=== PATIENT | female | born 1980 | race Asian ===

== ENCOUNTER 2018-08-03 17:40 | Emergency (ER) | payer MEDICAID ==
[2018-08-03] MEDS ORDERED: MORPHINE SULFATE 4 MG INJ IV ONE (18:08)
[2018-08-03] MEDS ORDERED: Sodium Chloride 0.9% 1000 ML 1,000 ML IV STA (18:08)
[2018-08-03] MEDS ORDERED: BENADRYL 50 MG/ML IV ONE (18:08)
[2018-08-03] MEDS ORDERED: BENADRYL 50 MG/ML ONE (18:13)
[2018-08-03] MEDS ORDERED: MORPHINE SULFATE 4 MG INJ ONE (18:13)
[2018-08-03] MEDS ORDERED: Sodium Chloride 0.9% 1000 ML 1,000 ML ONE (18:13)
--- NOTE | 2018-08-03 18:13 | ERPHSYRPT ---
- History of Present Illness Historian: patient Patient Subjective Stated Complaint: Abdominal pain to right lower side Triage Nursing Assessment: Patient brought back to ER via w/c. Patient states she has been having right lower abdomen pain since 0800 this am. Patient tearful stating pain is 9/10. Abdomen soft and round. Patient only hurts to right lower abdomen. Patient states she has been having diarrhea and vomitting since yesterday. Timing/Duration: today (7 AM) Activities at Onset: none Quality: aching, cramping Abdominal Pain Onset Location: RLQ Pain Radiation: no radiation Severity of Pain-Max: moderate Severity of Pain-Current: moderate Modifying Factors: Improves With: vomiting. Worsens With: analgesics, antacids , breathing, coughing, defecating, eating, exercise, lying down, movement, palpation, rest, urinating, position, walking Associated Symptoms: nausea, neck pain, No back, No chest pain, No diaphoresis, No diarrhea, No fever/chills, No fatigue, No headache, No heartburn, No loss of appetite, No rash, No shortness of breath, No syncope, No vomiting, No weakness Previous symptoms: no prior history Hx Tetanus, Diphtheria Vaccination/Date Given: Yes Hx Influenza Vaccination/Date Given: No Hx Pneumococcal Vaccination/Date Given: No Immunizations Up to Date: Yes <CLAUDIA URIBE - Last Filed: 08/03/18 19:10> <PARKER COTTON - Last Filed: 08/03/18 23:20> - History of Present Illness Time Seen by Provider: 08/03/18 18:09 Physician History: 28-year-old white female with history of asthma arrhythmia high blood pressure Crohn's irritable bowel stomach cancer osteoarthritis rheumatoid arthritis PTSD. Patient arrives with complaint of right lower quadrant pain vomiting nausea symptoms since 7 AM this morning. Past medical history includes asthma, arrhythmia, high blood pressure, Crohn's, irritable bowel, stomach cancer, osteoarthritis, rheumatoid arthritis, PTSD. Past surgical history includes portion of stomach removed secondary to stomach cancer 2014, is partial hysterectomy, removal of the left ovary. (CLAUDIA URIBE) Allergies/Adverse Reactions: clarithromycin [From Biaxin] Allergy (Verified 08/03/18 18:00) dicyclomine [From Bentyl] Allergy (Verified 08/03/18 18:00) haloperidol [From Haldol] Allergy (Verified 08/03/18 18:00) ketorolac [From Toradol] Allergy (Verified 08/03/18 18:00) Penicillins Allergy (Verified 08/03/18 18:00) prochlorperazine [From Compazine] Allergy (Verified 08/03/18 18:00) Home Medications: Lisinopril/Hydrochlorothiazide [Lisinopril-Hctz 20-25 mg Tab] 1 each PO [History] - Review of Systems Constitutional: No Fever, No Chills Eyes: No Symptoms Ears, Nose, & Throat: No Symptoms Respiratory: No Cough, No Dyspnea Cardiac: No Symptoms Abdominal/Gastrointestinal: Abdominal Pain, Nausea, Vomiting, Diarrhea (she states she had loose stools), No Constipation, No Hematemesis, No Hematochezia ( she did), No Melena, No Dysphagia, No Appetite Changes Genitourinary Symptoms: No Dysuria Musculoskeletal: No Back Pain, No Neck Pain Skin: No Rash Neurological: No Dizziness, No Focal Weakness, No Sensory Changes Psychological: No Symptoms Endocrine: No Symptoms All Other Systems: Reviewed and Negative <CLAUDIA URIBE - Last Filed: 08/03/18 19:10> - Past Medical History Pertinent Past Medical History: Yes Neurological History: Epilepsy Cardiac History: Arrhythmia, Hypertension Respiratory History: Asthma Endocrine Medical History: No Pertinent History Musculoskeletal History: Osteoarthritis, Rheumatoid Arthritis GI Medical History: Crohns Disease, Irritable Bowel, Stomach Cancer History: No Pertinent History Psycho-Social History: Anxiety Female Reproductive Disorders: No Pertinent History Other Medical History: PTSD - Past Surgical History Past Surgical History: Yes Neuro Surgical History: No Pertinent History Cardiac: No Pertinent History Respiratory: No Pertinent History Gastrointestinal: Other Genitourinary: No Pertinent History Musculoskeletal: No Pertinent History Female Surgical History: Hysterectomy Other Surgical History: part of stomach removed due to stomach cancer 2014. partial hysterectomy removal of left ovary 2001 - Social History Smoking Status: Never smoker Exposure to second hand smoke: No Drug Use: none Patient Lives Alone: No - Female History Hx Last Menstrual Period: Partial hysterectomy 2001 Hx Now: No <CLAUDIA URIBE - Last Filed: 08/03/18 19:10> - Physical Exam General Appearance: moderate distress, alert, obese Eye Exam: PERRL/EOMI, eyes nml inspection Ears, Nose, Throat Exam: normal ENT inspection, pharynx normal, moist mucous membranes Neck Exam: normal inspection, non-tender, supple, full range of motion Respiratory Exam: normal breath sounds, lungs clear, No respiratory distress Cardiovascular Exam: regular rate/rhythm, normal heart sounds, normal peripheral pulses Gastrointestinal/Abdomen Exam: soft, tenderness (rlq tenderness), No mass Back Exam: normal inspection, normal range of motion, No CVA tenderness, No vertebral tenderness Extremity Exam: normal inspection, normal range of motion, pelvis stable Neurologic Exam: oriented x 3, cooperative, management accountant II-XII nml as tested, normal mood/affect, nml cerebellar function, sensation nml, No motor deficits Skin Exam: normal color, warm, dry SpO2 Interpretation: normal (100%) SpO2: 100 Oxygen Delivery: Room Air <CLAUDIA URIBE - Last Filed: 08/03/18 19:10> - Nursing Vital Signs Nursing Vital Signs: Initial Vital Signs Temperature 98.1 F 08/03/18 17:47 Pulse Rate 61 08/03/18 17:47 Respiratory Rate 18 08/03/18 17:47 Blood Pressure 149/123 08/03/18 17:47 O2 Sat by Pulse Oximetry 100 08/03/18 17:47 Pain Scale Pain Intensity 8 - Course Nursing assessment & vital signs reviewed: Yes <PARKER COTTON - Last Filed: 08/03/18 23:20> Ordered Tests: Active Orders 24 hr Category Date Time Status IV Insertion STAT Care 08/03/18 18:08 Active ABDOMEN AND PELVIS W CONTRAST [CT] Stat Exams 08/03/18 20:56 Taken AMYLASE Stat Lab 08/03/18 20:26 Completed CBC W DIFF Stat Lab 08/03/18 20:26 Completed CMP Stat Lab 08/03/18 20:26 Completed CULTURE,URINE Stat Lab 08/03/18 18:59 Received UA W/ MICROSCOPIC Stat Lab 08/03/18 18:59 Completed Medication Summary Generic Name Dose Route Start Last Admin Trade Name Freq PRN Reason Stop Dose Admin Oxycodone/Acetaminophen 2 tab 08/03/18 23:15 Percocet Tablet 5/325mg PO 08/03/18 23:16 STAT STA Discontinued Medications Generic Name Dose Route Start Last Admin Trade Name Freq PRN Reason Stop Dose Admin Diphenhydramine HCl 25 mg 08/03/18 18:08 08/03/18 20:23 Benadryl 50 Mg/Ml IV 08/03/18 18:09 25 mg STAT ONE Administration Diphenhydramine HCl Confirm 08/03/18 18:13 Benadryl 50 Mg/Ml Administered 08/03/18 18:14 Dose 50 mg .ROUTE .STK-MED ONE Hydromorphone HCl 1 mg 08/03/18 20:56 08/03/18 22:16 Hydromorphone 1 Mg/Ml Ampule IV 08/03/18 20:57 1 mg STAT ONE Administration Hydromorphone HCl Confirm 08/03/18 20:58 Hydromorphone 1 Mg/Ml Ampule Administered 08/03/18 20:59 Dose 1 mg .ROUTE .STK-MED ONE Sodium Chloride 1,000 mls @ 999 mls/hr 08/03/18 18:08 08/03/18 21:38 Sodium Chloride 0.9% 1000 Ml IV 08/03/18 19:08 Infused .Q1H1M STA Infusion Sodium Chloride Confirm 08/03/18 18:13 Sodium Chloride 0.9% 1000 Ml Administered 08/03/18 18:14 Dose 1,000 mls @ ud .ROUTE .STK-MED ONE Morphine Sulfate 4 mg 08/03/18 18:08 08/03/18 20:23 Morphine Sulfate 4 Mg Inj IV 08/03/18 18:09 4 mg STAT ONE Administration Morphine Sulfate Confirm 08/03/18 18:13 Morphine Sulfate 4 Mg Inj Administered 08/03/18 18:14 Dose 4 mg .ROUTE .STK-MED ONE Ondansetron HCl 4 mg 08/03/18 21:02 08/03/18 21:10 Zofran 4 Mg/2 Ml Vial IV 08/03/18 21:03 4 mg STAT ONE Administration Ondansetron HCl Confirm 08/03/18 21:01 Zofran 4 Mg/2 Ml Vial Administered 08/03/18 21:02 Dose 4 mg .ROUTE .STK-MED ONE Lab/Rad Data: Laboratory Result Diagrams 08/03/18 20:26 08/03/18 20:26 Laboratory Results 08/03/18 08/03/18 08/03/18 Range/Units 20:26 20:26 18:59 WBC 8.9 (4.0-10.5) K/mm3 RBC 5.02 (4.1-5.4) M/mm3 Hgb 15.1 (12.0-16.0) gm/dl Hct 45.2 (35-47) % MCV 90.0 (78-100) fl MCH 30.1 (26-32) pg MCHC 33.4 (32-36) g/dl RDW 13.9 (11.5-14.0) % Plt Count 411 (150-450) K/mm3 MPV 10.0 H (6-9.5) fl Gran % 73.5 H (36.0-66.0) % Eos # (Auto) 0.17 (0-0.5) Absolute Lymphs (auto) 1.75 (1.0-4.6) Absolute Monos (auto) 0.44 (0.0-1.3) Lymphocytes % 19.6 L (24.0-44.0) % Monocytes % 4.9 (0.0-12.0) % Eosinophils % 1.9 (0.00-5.0) % Basophils % 0.1 (0.0-0.4) % Absolute Granulocytes 6.55 (1.4-6.9) Basophils # 0.01 (0-0.4) Sodium 141 (137-145) mmol/L Potassium 3.4 L (3.5-5.1) mmol/L Chloride 101 (98-107) mmol/L Carbon Dioxide 27 (22-30) mmol/L Anion Gap 17.0 H (5-15) MEQ/L BUN 23 H (7-17) mg/dL Creatinine 0.85 (0.52-1.04) mg/dL Estimated GFR > 60.0 ML/MIN Glucose 104 (74-106) mg/dL Calcium 9.9 (8.4-10.2) mg/dL Total Bilirubin 0.40 (0.2-1.3) mg/dL AST 21 (14-36) U/L ALT 24 (0-35) U/L Alkaline Phosphatase 194 H (38-126) U/L Serum Total Protein 8.7 H (6.3-8.2) g/dL Albumin 4.8 (3.5-5.0) g/dL Amylase 72 (30-110) U/L Ur Collection Type VOID Urine Color YELLOW (YELLOW) Urine Appearance HAZY (CLEAR) Urine pH 5.0 (5-6) Ur Specific [place] 1.015 (1.005-1.025) Urine Protein TRACE (Negative) Urine Ketones NEGATIVE (NEGATIVE) Urine Blood NEGATIVE (0-5) [place]/ul Urine Nitrite NEGATIVE (NEGATIVE) Urine Bilirubin NEGATIVE (NEGATIVE) Urine Urobilinogen NORMAL (0-1) mg/dL Ur Leukocyte Esterase TRACE (NEGATIVE) Urine Microscopic RBC 2-5 (0-2) /HPF Urine Microscopic WBC 2-5 (0-5) /HPF Ur Epithelial Cells MODERATE (FEW) /HPF Urine Bacteria MODERATE (NEGATIVE) /HPF Urine Mucus SLIGHT (NEGATIVE) /HPF Urine Culture Reflexed YES (NO) Urine Glucose NEGATIVE (NEGATIVE) mg/dL Specimen Received 08/03/18 1900 - Progress Progress: improved <CLAUDIA URIBE - Last Filed: 08/03/18 19:10> - Progress Progress: improved <PARKER COTTON - Last Filed: 08/03/18 23:20> - Progress Progress Note: 08/03/18 18:50 28-year-old white female arrives with complaint of right lower quadrant abdominal pain symptoms since 7:30 this morning patient states she has been having vomiting and diarrhea. She has had a history of a partial hysterectomy left ovary removed. Labs are ordered IV fluids ordered unfortunately nurses are unable to obtain IV access. Anesthesia has been contacted by the nurses for possible IV access. . 08/03/18 19:07 Patient will be turned over to Dr. Cotton secondary to shift change. Case has been discussed with Dr. Cotton. (CLAUDIA URIBE) 08/03/18 23:[address] scan abd/pelvis does not show any acute findings. The labs are unremarkable. Since the patient has a history of stomach cancer, the patient will need to F/U with her oncologist for a PET CT scan. The patient will also need to F/U with her OPTION TRADER for pelvic US and evaluation. Pt will be sent home on a short course of percocet. (PARKER COTTON) <CLAUDIA URIBE - Last Filed: 08/03/18 19:10> - Departure Time of Disposition: 23:17 Departure Disposition: Home Critical Care Time: No <PARKER COTTON - Last Filed: 08/03/18 23:20> - Departure Clinical Impression: Abdominal pain Qualifiers: Abdominal location: right lower quadrant Qualified Code(s): R10.31 - Right lower quadrant pain Constipation Qualifiers: Constipation type: unspecified constipation type Qualified Code(s): K59.00 - Constipation, unspecified Condition: Stable Referrals: KIAH OBREGON MD [Primary Care Provider] - Instructions: Acute Abdomen (Belly Pain), Adult (DC), Constipation, Adult (DC) Additional Instructions: Follow up with your oncologist next week for possible PET CT scan or MRI to assess your abdominal pain. Follow up with your desktop operator for evaluation of your abdominal pain. Prescriptions: Oxycodone HCl/Acetaminophen [Percocet 5-325 mg Tablet] 1 each PO QID PRN #12 tablet MDD 4 PRN Reason: Pain Polyethylene Glycol 3350 [Miralax] 17 gm PO DAILY #1 powd.pack
[2018-08-03 19:11] LABS: Appearance HAZY (CLEAR); Bilirubin NEGATIVE (NEGATIVE); Blood NEGATIVE Ery/ul (0-5); Glucose NEGATIVE (NEGATIVE); Ketones NEGATIVE (NEGATIVE); Leukocyte Esterase TRACE (NEGATIVE); Nitrite NEGATIVE (NEGATIVE); Protein,Urine Dip TRACE (Negative); Specific Gravity 1.015 (1.005-1.025); Urobilinogen NORMAL mg/dL (0-1)
[2018-08-03 19:12] LABS: Bacteria MODERATE /HPF (NEGATIVE); Epithelial Cells MODERATE /HPF (FEW); Mucus SLIGHT /HPF (NEGATIVE)
[2018-08-03 20:36] LABS: BASOPHIL % 0.1 % (0.0-0.4); Basophil (Absolute #) 0.01 (0-0.4); Eosinophil % 1.9 % (0.00-5.0); Eosinophil (Absolute #) 0.17 (0-0.5); Granulocyte Absolute (ANC) 6.55 (1.4-6.9); Granulocytes % 73.5 % (36.0-66.0); Hematocrit 45.2 % (35-47); Hemoglobin 15.1 gm/dl (12.0-16.0); Lymphocyte (Absolute #) 1.75 (1.0-4.6); Lymphocytes % 19.6 % (24.0-44.0); Mean Corpuscular Hemoglobin 30.1 pg (26-32); Mean Corpuscular Hgb Concent. 33.4 g/dl (32-36); Monocyte (Absolute #) 0.44 (0.0-1.3); Monocytes % 4.9 % (0.0-12.0); Platelet Count 411 K/mm3 (150-450); Red Blood Count 5.02 M/mm3 (4.1-5.4); Red Cell Distribution Width 13.9 % (11.5-14.0); White Blood Count 8.9 K/mm3 (4.0-10.5)
[2018-08-03 20:53] LABS: ALBUMIN 4.8 g/dL (3.5-5.0); ALKALINE PHOSPHATASE 194 U/L (38-126); AMYLASE 72 U/L (30-110); BLOOD UREA NITROGEN 23 mg/dL (7-17); CHLORIDE 101 mmol/L (98-107); Calcium 9.9 mg/dL (8.4-10.2); Carbon Dioxide 27 mmol/L (22-30); Creatinine 1 0.85 mg/dL (0.52-1.04); Glucose 104 mg/dL (74-106); Potassium 3.4 mmol/L (3.5-5.1); SGOT/AST 21 U/L (14-36); SGPT/ALT 24 U/L (0-35); SODIUM 141 mmol/L (137-145); Total Protein 8.7 g/dL (6.3-8.2)
[2018-08-03] MEDS ORDERED: Hydromorphone 1 mg/ml Ampule IV ONE (20:56)
[2018-08-03] MEDS ORDERED: Hydromorphone 1 mg/ml Ampule ONE (20:58)
[2018-08-03] MEDS ORDERED: Zofran 4 MG/2 ML VIAL ONE (21:01)
[2018-08-03] MEDS ORDERED: Zofran 4 MG/2 ML VIAL IV ONE (21:02)
[2018-08-03 22:14] VITALS: PULSE 98
[2018-08-03] MEDS ORDERED: PERCOCET TABLET 5/325MG PO STA (23:15)
[2018-08-03] MEDS ORDERED: PERCOCET TABLET 5/325MG ONE (23:16)
[2018-08-03 23:20] VITALS: BP 116/63; O2SAT 96
--- NOTE | 2018-08-04 06:57 | XRAY ---
Indication: Right lower quadrant pain with nausea, vomiting, and diarrhea. History ovary cysts, Crohn's disease, and stomach cancer. Multiple contiguous axial images obtained through the abdomen and pelvis using 80 cc Isovue 370 contrast only. Comparison: None Lung bases demonstrates mild bibasilar dependent atelectasis. No infiltrate or effusion. Heart is not enlarged. Small hiatal hernia. Noncontrasted stomach and bowel loops appear nonobstructed. Normal appendix. Mild diffuse scattered colonic fecal debris throughout and sigmoid diverticulosis. Previous cholecystectomy and hysterectomy. No free fluid/air. Remaining liver, pancreas, spleen, adrenal glands, kidneys, ureters, bladder, and aorta appear unremarkable. No pathologic retroperitoneal lymphadenopathy. Osseous structures intact. No ventral or inguinal hernias. Impression: 1. Small hiatal hernia, fecal stasis without obstruction, and sigmoid diverticulosis. 2. Remaining CT abdomen/pelvis with contrast exam is negative. Comment: Preliminary interpretation was made by [facility]. No critical discrepancy. CTDI 28.13
== END 2018-08-03 23:31 | disposition home or self-care (01) ==
LOC: ED 17:40 → EDBD 17:40 → ED 23:31
DX: R10.31 Right lower quadrant pain (principal); R11.2 Nausea with vomiting, unspecified; R19.7 Diarrhea, unspecified; K59.00 Constipation, unspecified; Z85.028 Personal history of other malignant neoplasm of stomach
CPT/HCPCS: 36000; 36415; 74177; 76942; 80053; 81000; 82150; 85025; 87086; 96360; 96374; 96375; 99284; J1170; J1200; J2270; J2405; A9270-GY

== ENCOUNTER 2018-08-07 21:07 | Emergency (ER) | payer MEDICAID ==
[2018-08-07 22:00] VITALS: BP 108/96; PULSE 66; O2SAT 97
[2018-08-07] MEDS ORDERED: Sodium Chloride 0.9% 1000 ML 1,000 ML IV STA (22:22)
--- NOTE | 2018-08-07 22:29 | ERPHSYRPT ---
- History of Present Illness Time Seen by Provider: 08/07/18 22:23 Historian: patient Exam Limitations: no limitations Patient Subjective Stated Complaint: pt states her vomiting and diarrhea have increased today. states she is having pain in her lower abd Triage Nursing Assessment: pt alert and oriented, answers questions approp. pt in per wheelchair. transfer to stretcher per self. respirations nonlabored with lungs cta. abd soft and nontender to light palpation. bowel sounds present x4. Physician History: 38-year-old morbidly obese white female with history of asthma, arrhythmia, high blood pressure, Crohn's, irritable bowel, stomach cancer, osteoarthritis, rheumatoid arthritis, PTSD. Patient was seen here on the August 03, 2018 with complaint of right lower quadrant abdominal pain and vomiting symptoms since 7:00 AM on that day. Patient had a rather extensive workup including CBC CMP amylase lipase UA and CT of the abdomen CT of the abdomen did not show any acute findings. Patient was a rather difficult stick she had an IV which was obtained by anesthesia. She was given IV fluids initially morphine and Benadryl she stated she did not get much relief she was given then given hydromorphone by Dr. Cotton as well as she was given Zofran. Patient apparently was going to sign out after receiving the hydromorphone however apparently agreed to stay until CT results were back. Patient was discharged by Dr. Cotton it was recommended that she follow-up with her family doctor oncologist or ENVIRONMENTAL AIDE physician for further evaluation she was given a prescription for Percocet 5/325 one 4 times a day #12 she was also given MiraLAX prescription secondary to some increased stool as noted on CT examination. Patient states that today at around 4:00 in the afternoon she noticed pain in her right lower quadrant of her abdomen and noted blood in her stool. She states she has been having nausea and vomiting for several days but she is really not concerned about that. Patient does state that she contacted her family physician Dr. Alegria after being seen last time he apparently could not work her in but had planned on her seeing a sole tacker in the future. Patient complains of pain in the right lower quadrant states she has blood in her stools at this time. Past medical history includes asthma, arrhythmia, high blood pressure, Crohn's, irritable bowel, stomach cancer, osteoarthritis, rheumatoid arthritis, PTSD Past surgical history includes portion of stomach removed secondary to stomach cancer in 2015, partial hysterectomy, removal of the left ovary . Social history patient denies tobacco alcohol or illicit drug use Timing/Duration: today (4:00 this afternoon) Activities at Onset: none Quality: cramping Abdominal Pain Onset Location: RLQ Pain Radiation: no radiation Severity of Pain-Max: moderate Severity of Pain-Current: moderate Modifying Factors: Improves With: vomiting, other (patient states she has b). Worsens With: analgesics, antacids, breathing, coughing, defecating, eating, exercise, lying down, movement, palpation, rest, urinating, position, walking Associated Symptoms: nausea, vomiting, No back, No chest pain, No diaphoresis, No diarrhea, No fever/chills, No fatigue, No headache, No loss of appetite, No neck pain, No rash, No shortness of breath, No syncope Previous symptoms: same symptoms as today Allergies/Adverse Reactions: clarithromycin [From Biaxin] Allergy (Verified 08/07/18 22:00) dicyclomine [From Bentyl] Allergy (Verified 08/07/18 22:00) haloperidol [From Haldol] Allergy (Verified 08/07/18 22:00) ketorolac [From Toradol] Allergy (Verified 08/07/18 22:00) Penicillins Allergy (Verified 08/07/18 22:00) prochlorperazine [From Compazine] Allergy (Verified 08/07/18 22:00) Home Medications: Lisinopril/Hydrochlorothiazide [Lisinopril-Hctz 20-25 mg Tab] 1 each PO [History] Hx Tetanus, Diphtheria Vaccination/Date Given: Yes Hx Influenza Vaccination/Date Given: No Hx Pneumococcal Vaccination/Date Given: No Immunizations Up to Date: Yes - Review of Systems Constitutional: No Fever, No Chills Eyes: No Symptoms Ears, Nose, & Throat: No Symptoms Respiratory: No Cough, No Dyspnea Cardiac: No Chest Pain, No Edema, No Syncope Abdominal/Gastrointestinal: Abdominal Pain, Nausea, Vomiting, Hematochezia, Other Genitourinary Symptoms: No Dysuria Musculoskeletal: No Back Pain, No Neck Pain Skin: No Rash Neurological: No Dizziness, No Focal Weakness, No Sensory Changes Psychological: No Symptoms Endocrine: No Symptoms All Other Systems: Reviewed and Negative - Past Medical History Pertinent Past Medical History: Yes Neurological History: Epilepsy Cardiac History: Arrhythmia, Hypertension Respiratory History: Asthma Endocrine Medical History: No Pertinent History Musculoskeletal History: Osteoarthritis, Rheumatoid Arthritis GI Medical History: Crohns Disease, Irritable Bowel, Stomach Cancer History: No Pertinent History Psycho-Social History: Anxiety Female Reproductive Disorders: No Pertinent History Other Medical History: PTSD - Past Surgical History Past Surgical History: Yes Neuro Surgical History: No Pertinent History Cardiac: No Pertinent History Respiratory: No Pertinent History Gastrointestinal: Cholecystectomy, Other Genitourinary: No Pertinent History Musculoskeletal: Orthopedic Surgery Female Surgical History: Hysterectomy Other Surgical History: part of stomach removed due to stomach cancer 2014. partial hysterectomy removal of left ovary 2001. mult knee surgery - Social History Smoking Status: Never smoker Exposure to second hand smoke: No Drug Use: none Patient Lives Alone: No - Female History Hx Last Menstrual Period: hyster Hx Now: No - Nursing Vital Signs Nursing Vital Signs: Initial Vital Signs Temperature 97.8 F 08/07/18 21:49 Pulse Rate 66 08/07/18 21:49 Respiratory Rate 20 08/07/18 21:49 Blood Pressure 108/96 08/07/18 21:49 O2 Sat by Pulse Oximetry 97 08/07/18 21:49 Pain Scale Pain Intensity 9 - Physical Exam SpO2: 97 Oxygen Delivery: Room Air - Course Nursing assessment & vital signs reviewed: Yes Ordered Tests: Active Orders 24 hr Category Date Time Status IV Insertion STAT Care 08/07/18 22:22 Active Medication Summary Discontinued Medications Generic Name Dose Route Start Last Admin Trade Name Freq PRN Reason Stop Dose Admin Sodium Chloride 1,000 mls @ 999 mls/hr 08/07/18 22:22 Sodium Chloride 0.9% 1000 Ml IV 08/07/18 23:22 .Q1H1M STA - Progress Progress: improved Progress Note: 08/07/18 22:30 offered to have a Daren did examine the patient she had some mild right lower quadrant tenderness positive bowel sounds, I did tell the patient I would go ahead and plan on getting a CBC CMP amylase lipase Will we did say were negative of fluids and consider Benadryl for her pain. Patient apparently has decided that she would prefer to go home and try her Benadryl at home. 08/07/18 23:02 I went ahead and offered to get the blood work give patient's fluids, get labs, and get a rectal exam to quantify and qualify her rectal bleeding. Patient has decided that she really does not want to have more labs she does not want a rectal exam. I have told the patient that I cannot rule out serious illnesses or dangerous illnesses without labs and or at least occult blood in stool. Patient has decided that she wants to leave Will have patient leave AGAINST MEDICAL ADVICE. 08/07/18 23:04 It was advised that patient follow up with her family doctor. - Departure Time of Disposition: 22:31 Departure Disposition: Home, AMA Clinical Impression: stated hematochezia Abdominal pain Qualifiers: Abdominal location: right lower quadrant Qualified Code(s): R10.31 - Right lower quadrant pain Condition: Fair Critical Care Time: No Referrals: KIAH OBREGON MD [Primary Care Provider] -
== END 2018-08-07 22:39 | disposition left against medical advice (07) ==
LOC: ED 21:07
DX: K92.1 Melena (principal); R10.31 Right lower quadrant pain; R11.2 Nausea with vomiting, unspecified; Z79.899 Other long term (current) drug therapy
CPT/HCPCS: 99283

== ENCOUNTER 2018-08-16 00:45 | Emergency (ER) | payer MEDICAID ==
[2018-08-16 01:03] VITALS: O2SAT 96
--- NOTE | 2018-08-16 01:32 | ERPHSYRPT ---
- History of Present Illness Time Seen by Provider: 08/16/18 01:25 Historian: patient Exam Limitations: no limitations Patient Subjective Stated Complaint: pt is alert and oriented. pt is ambulatory. pt has RLQ pain. pt states that it began hurting at 08/15/18 2330. pt states pain began aching and then became sharp. rebound tenderness noted. pt grasping site. pt has had n/v/d. hx of crohns. Triage Nursing Assessment: see above Physician History: The patient is a morbidly obese 38-year-old female brought in by her complaining of a sudden onset of right lower quadrant abdominal pain today sometime between 2 and 5 PM. At times her history is disjointed and is not clearly matching up with prior history is recorded. She was seen in this ER on 08/03/18 and again on 08/07/18 for the same complaints. This has happened in the past, she also complains of vomiting and diarrhea. She did not take any thing to help the pain tonight. She was given [place] on 08/03/18 and still has some left. She did not take the [place] because she says it hurts her stomach. She took some Zofran tonight and it did not help. She moved here from [place] one month ago. She has a history of asthma, cardiac arrhythmia, hypertension, Crohn 's disease, irritable bowel, stomach cancer with partial stomach resection, arthritis, rheumatoid arthritis, and PTSD. She states that the only medicine she takes at this time is Linsess. On 08/03/18 she was given Dilaudid for pain relief. On 08/07/18 she left AMA because she was offered Benadryl and not narcotics. On 08/03/18 she was advised to follow-up not only with her family doctor but with [facility] and a GI specialist. She states she does have appointments pending in August for these 2 specialties. She states that she wants to Humira or some other recent treatment for Crohn's disease. She also has a partial hysterectomy and cholecystectomy. An abdomen and pelvis CT scan was performed on 08/03/18 the did not show any acute findings. She was given him relax prescription because it was noted that she had increased colonic fecal material. Timing/Duration: today, hour(s) (10), sudden Activities at Onset: none Quality: stabbing Abdominal Pain Onset Location: RLQ Pain Radiation: no radiation Severity of Pain-Max: severe Severity of Pain-Current: severe Modifying Factors: Improves With: nothing Previous symptoms: same symptoms as today Allergies/Adverse Reactions: clarithromycin [From Biaxin] Allergy (Verified 08/07/18 22:00) dicyclomine [From Bentyl] Allergy (Verified 08/07/18 22:00) haloperidol [From Haldol] Allergy (Verified 08/07/18 22:00) ketorolac [From Toradol] Allergy (Verified 08/07/18 22:00) Penicillins Allergy (Verified 08/07/18 22:00) prochlorperazine [From Compazine] Allergy (Verified 08/07/18 22:00) Home Medications: Lisinopril/Hydrochlorothiazide [Lisinopril-Hctz 20-25 mg Tab] 1 each PO [History] Hx Tetanus, Diphtheria Vaccination/Date Given: Yes (2014) Hx Influenza Vaccination/Date Given: No Hx Pneumococcal Vaccination/Date Given: No Immunizations Up to Date: Yes - Review of Systems Constitutional: No Fever, No Chills Eyes: No Symptoms Ears, Nose, & Throat: No Symptoms Respiratory: No Cough, No Dyspnea Cardiac: No Chest Pain, No Edema, No Syncope Abdominal/Gastrointestinal: Abdominal Pain, Nausea, Vomiting, Diarrhea Genitourinary Symptoms: No Dysuria Musculoskeletal: No Back Pain, No Neck Pain Skin: No Rash Neurological: No Dizziness, No Focal Weakness, No Sensory Changes Psychological: No Symptoms Endocrine: No Symptoms Hematologic/Lymphatic: No Symptoms Immunological/Allergic: No Symptoms All Other Systems: Reviewed and Negative - Past Medical History Pertinent Past Medical History: Yes Neurological History: Epilepsy Cardiac History: Arrhythmia, Hypertension Respiratory History: Asthma Endocrine Medical History: No Pertinent History Musculoskeletal History: Osteoarthritis, Rheumatoid Arthritis GI Medical History: Crohns Disease, Irritable Bowel, Stomach Cancer History: No Pertinent History Psycho-Social History: Anxiety Female Reproductive Disorders: No Pertinent History Other Medical History: PTSD - Past Surgical History Past Surgical History: Yes Neuro Surgical History: No Pertinent History Cardiac: No Pertinent History Respiratory: No Pertinent History Gastrointestinal: Cholecystectomy, Other Genitourinary: No Pertinent History Musculoskeletal: Orthopedic Surgery Female Surgical History: Hysterectomy Other Surgical History: part of stomach removed due to stomach cancer 2014. partial hysterectomy removal of left ovary 2001. mult knee surgery - Social History Smoking Status: Never smoker Exposure to second hand smoke: No Drug Use: none Patient Lives Alone: No - Female History Hx Now: No - Nursing Vital Signs Nursing Vital Signs: Initial Vital Signs Temperature 98.5 F 08/16/18 00:45 Pulse Rate 88 08/16/18 00:45 Respiratory Rate 20 08/16/18 00:45 Blood Pressure 144/75 08/16/18 00:45 O2 Sat by Pulse Oximetry 96 08/16/18 00:45 Pain Scale Pain Intensity 9 - Physical Exam General Appearance: mild distress Eye Exam: PERRL/EOMI, eyes nml inspection Ears, Nose, Throat Exam: normal ENT inspection, pharynx normal, moist mucous membranes Neck Exam: normal inspection, non-tender, supple, full range of motion Respiratory Exam: normal breath sounds, lungs clear, No respiratory distress Cardiovascular Exam: regular rate/rhythm, normal heart sounds Gastrointestinal/Abdomen Exam: tenderness (very light touch to RLQ elicits disproportunate response.) Pelvic Exam: not done Rectal Exam: not done Back Exam: normal inspection, normal range of motion, No CVA tenderness, No vertebral tenderness Extremity Exam: normal inspection Neurologic Exam: alert, oriented x 3, cooperative, normal mood/affect, nml cerebellar function, sensation nml, No motor deficits Skin Exam: normal color, warm, dry SpO2 Interpretation: normal SpO2: 96 Ordered Tests: Active Orders 24 hr Category Date Time Status Clean Catch Urine Specimen STAT Care 08/16/18 01:37 Ordered OBSTR/ACUTE ABDOMEN SERIES Stat Exams 08/16/18 01:37 Stop Req BMP Stat Lab 08/16/18 01:37 Stop Req CBC W DIFF Stat Lab 08/16/18 01:37 Stop Req LIPASE Stat Lab 08/16/18 01:37 Stop Req Lactic Acid Stat Lab 08/16/18 01:37 Stop Req UA W/RFX UR CULTURE Stat Lab 08/16/18 01:37 Uncollected Medication Summary Discontinued Medications Generic Name Dose Route Start Last Admin Trade Name Freq PRN Reason Stop Dose Admin Sodium Chloride 1,000 mls @ 999 mls/hr 08/16/18 01:37 Sodium Chloride 0.9% 1000 Ml IV 08/16/18 02:37 .Q1H1M STA Mesalamine 800 mg 08/16/18 01:44 Delzicol PO 08/16/18 01:45 1XONLY STA Promethazine HCl 25 mg 08/16/18 01:37 Phenergan 25 Mg Inj IV 08/16/18 01:38 STAT ONE Promethazine HCl 50 mg 08/16/18 02:04 Phenergan 25 Mg Inj IM 08/16/18 02:05 STAT ONE - Progress Progress Note: 08/16/18 02:07 IV access was unsuccessful. Patient declines further workup. Patient requests oral medication for home use. Counseled pt/family regarding: diagnosis, need for follow-up - Departure Time of Disposition: 02:08 Departure Disposition: Home Clinical Impression: Abdominal pain, Gastroenteritis Condition: Stable Critical Care Time: No Referrals: KIAH OBREGON MD [Primary Care Provider] - Additional Instructions: You have abdominal pain, nausea, vomiting, and diarrhea. We were unable to gain IV access for IV fluids and medication. You were given Phenergan 50 mg by IM. Take mesalamine 800 mg 2 times a day. Your symptoms tonight may be due to Crohn's disease. Follow-up with your scheduled visits in August with OB gynecology and oncology. Follow-up with your primary medical doctor the first of next week. Prescriptions: Mesalamine [Asacol Hd] 800 mg PO BID #14 tablet.
[2018-08-16] MEDS ORDERED: Sodium Chloride 0.9% 1000 ML 1,000 ML IV STA (01:37)
[2018-08-16] MEDS ORDERED: Phenergan 25 MG INJ IV ONE (01:37)
[2018-08-16] MEDS ORDERED: DELZICOL PO STA (01:44)
[2018-08-16] MEDS ORDERED: Phenergan 25 MG INJ ONE (02:04)
[2018-08-16] MEDS ORDERED: Phenergan 25 MG INJ IM ONE (02:04)
[2018-08-16 02:07] VITALS: BP 131/92
[2018-08-16 02:15] VITALS: PULSE 87
== END 2018-08-16 02:21 | disposition home or self-care (01) ==
LOC: ED 00:45
DX: K52.9 Noninfective gastroenteritis and colitis, unspecified (principal); R10.31 Right lower quadrant pain; R11.2 Nausea with vomiting, unspecified; R19.7 Diarrhea, unspecified; Z85.028 Personal history of other malignant neoplasm of stomach; Z79.899 Other long term (current) drug therapy
CPT/HCPCS: 96372; 99284; J2550; A9270-GY

== ENCOUNTER 2018-09-05 07:57 | Day surgery (SDC) | payer OTHER ==
[~2018-09-05 07:57] MED LIST: Lactated Ringers 1,000 ML IV SCH; Levofloxacin 500MG/100ML D5W 500 MG/100 ML BAG IV ONE; XYLOCAINE 1% HCL 20 ML MDV ONE
[2018-09-05] MEDS ORDERED: SUBLIMAZE 100 MCG/2 ML IV ONE (07:58)
[2018-09-05] MEDS ORDERED: Versed 2 MG/2 ML Injection IV ONE (07:58)
[2018-09-05] MEDS ORDERED: DIPRIVAN 200 MG/20 ML IV ONE (07:58)
[2018-09-05] MEDS ORDERED: DILAUDID 2 MG INJECTION ONE (12:46)
[2018-09-05] MEDS ORDERED: SUBLIMAZE 100 MCG/2 ML ONE (13:08)
--- NOTE | 2018-09-05 13:12 | OP ---
SURGERY DATE/TIME: 09/05/2018 1140 PREOPERATIVE DIAGNOSIS: Nonfunctioning port. Patient still requiring access. POSTOPERATIVE DIAGNOSIS: Nonfunctioning port. Patient still requiring access. PROCEDURES: 1) Placement of a new right subclavian atrial port tunneled with fluoroscopy. 2) Removal of old port. SURGEON: Raudel Sun M.D. ANESTHESIA: MAC. COMPLICATIONS: None. CONDITION: Stable. INDICATION: A patient requiring access. DESCRIPTION OF PROCEDURE: Routine prep and drape. The old port was removed. Venipuncture obtained. Guide wire placed. Catheter tunneled. Catheter secured to the new port secured at 25 cm. Good aspiration of low pressure venous blood. Flushed with heparinized saline. Secured with 3-0 Prolene, 3-0 Vicryl, 4-0 Vicryl and Steri-Strips. Tip was in the right atrium with no ectopy. The patient tolerated the procedure satisfactorily.
--- NOTE | 2018-09-05 13:13 | XRAY ---
Indication: Port removal and replacement. Intraoperative fluoroscopy was provided for 6 seconds. Single digital spot image submitted for interpretation demonstrates partially visualized right Port-A-Cath. Correlate with intraoperative findings/report.
[2018-09-05 13:48] VITALS: BP 103/58; PULSE 89
[2018-09-05 14:01] VITALS: O2SAT 93
== END 2018-09-05 14:24 | disposition home or self-care (01) ==
LOC: SDC 07:57
PROVIDERS: ATTEND Surgery
DX: Z45.2 Encounter for adjustment and management of vascular access device (principal)
CPT/HCPCS: 77001; 94250; C1788; J1170; J1642; J1956; J2250; J2704; J3010

== ENCOUNTER 2019-02-23 08:29 | Emergency (ER) | payer OTHER ==
[2019-02-23] MEDS ORDERED: SUBLIMAZE 100 MCG/2 ML IV ONE (08:45)
[2019-02-23] MEDS ORDERED: Sodium Chloride 0.9% 1000 ML 1,000 ML IV STA (08:45)
--- NOTE | 2019-02-23 08:49 | ERPHSYRPT ---
- History of Present Illness Time Seen by Provider: 02/23/19 08:47 Historian: patient Exam Limitations: no limitations Patient Subjective Stated Complaint: pain in RLQ with N&V that began in the middle of the night Triage Nursing Assessment: Pt presents to the ER with severe RLQ abdominal pain that began in the middle of the night, N&V, diarrhea, pain with palpatation, denies radiation, vitals wnl, rates pain 08/05 Physician History: pain in Right lower quadrant of abdomen with nausea and vomiting that began in the middle of the night. Denies any fever, chills Timing/Duration: today Activities at Onset: none Quality: cramping Abdominal Pain Onset Location: RLQ Pain Radiation: no radiation Severity of Pain-Max: moderate Severity of Pain-Current: moderate Modifying Factors: Improves With: nothing Associated Symptoms: diarrhea, nausea, vomiting, No fever/chills Previous symptoms: no prior history Allergies/Adverse Reactions: fentanyl Allergy (Severe, Verified 02/23/19 10:11) Itching haloperidol [From Haldol] Allergy (Severe, Verified 02/23/19 08:47) restlessness legs/anxiety morphine Allergy (Severe, Verified 02/23/19 10:11) Itching clarithromycin [From Biaxin] Allergy (Verified 02/23/19 08:47) Rash dicyclomine [From Bentyl] Allergy (Verified 02/23/19 08:47) Stomach Pain ketorolac [From Toradol] Allergy (Verified 02/23/19 08:47) Stomach Pain Penicillins Allergy (Verified 02/23/19 08:47) Rash prochlorperazine [From Compazine] Allergy (Verified 02/23/19 08:47) Muscle Aches restless legs latex Adverse Reaction (Verified 02/23/19 08:47) Difficulty Breathing rash,diffic. breathing "can wear elastic underwear if it doesn't touch" Home Medications: Lisinopril/Hydrochlorothiazide [Lisinopril-Hctz 20-25 mg Tab] 20 mg PO DAILY 07/13 [History] Montelukast Sodium 10 mg [Singulair 10 MG] 10 mg PO DAILY 08/27/18 [History] Clonazepam 1 mg PO TID 02/23/19 [History] Gabapentin 300 mg PO HS 02/23/19 [History] Trazodone HCl 50 mg [Desyrel 50 mg] 100 mg PO DAILY 02/23/19 [History] Hx Tetanus, Diphtheria Vaccination/Date Given: Yes (2014) Hx Influenza Vaccination/Date Given: No Hx Pneumococcal Vaccination/Date Given: No - Review of Systems Constitutional: No Fever, No Chills Eyes: No Symptoms Ears, Nose, & Throat: No Symptoms Respiratory: No Cough, No Dyspnea Cardiac: No Chest Pain, No Edema, No Syncope Abdominal/Gastrointestinal: Abdominal Pain, Nausea, Vomiting, Diarrhea, Appetite Changes, No Constipation, No Hematemesis, No Hematochezia, No Melena, No Dysphagia Genitourinary Symptoms: No Dysuria Musculoskeletal: No Back Pain, No Neck Pain Skin: No Rash Neurological: No Dizziness, No Focal Weakness, No Sensory Changes Psychological: No Symptoms Endocrine: No Symptoms All Other Systems: Reviewed and Negative - Past Medical History Pertinent Past Medical History: Yes Neurological History: Epilepsy ENT History: No Pertinent History Cardiac History: Arrhythmia, Hypertension Respiratory History: Asthma Endocrine Medical History: No Pertinent History Musculoskeletal History: Osteoarthritis, Rheumatoid Arthritis GI Medical History: Crohns Disease, Irritable Bowel, Stomach Cancer History: No Pertinent History Psycho-Social History: Anxiety Female Reproductive Disorders: No Pertinent History Other Medical History: PTSD - Past Surgical History Past Surgical History: Yes Neuro Surgical History: No Pertinent History Cardiac: No Pertinent History Respiratory: No Pertinent History Gastrointestinal: Cholecystectomy, Other Genitourinary: No Pertinent History Musculoskeletal: Orthopedic Surgery Female Surgical History: Hysterectomy Other Surgical History: part of stomach removed due to stomach cancer 2014. partial hysterectomy removal of left ovary 2001. mult knee surgery - Social History Smoking Status: Never smoker Exposure to second hand smoke: No Drug Use: none Patient Lives Alone: No - Female History Hx Now: No (partial hysterectomy) - Nursing Vital Signs Nursing Vital Signs: Initial Vital Signs Temperature 97.6 F 02/23/19 08:38 Pulse Rate 78 02/23/19 08:38 Blood Pressure 122/97 02/23/19 08:38 O2 Sat by Pulse Oximetry 97 02/23/19 08:38 Pain Scale Pain Intensity 8 - Physical Exam General Appearance: no apparent distress, alert Eye Exam: PERRL/EOMI, eyes nml inspection Ears, Nose, Throat Exam: normal ENT inspection, pharynx normal, moist mucous membranes Neck Exam: normal inspection, non-tender, supple, full range of motion Respiratory Exam: normal breath sounds, lungs clear, No respiratory distress Cardiovascular Exam: regular rate/rhythm, normal heart sounds Gastrointestinal/Abdomen Exam: soft, tenderness (right lower quadrant), No mass Back Exam: normal inspection, normal range of motion, No CVA tenderness, No vertebral tenderness Extremity Exam: normal inspection, normal range of motion, pelvis stable Neurologic Exam: alert, oriented x 3, cooperative, normal mood/affect, nml cerebellar function, sensation nml, No motor deficits Skin Exam: normal color, warm, dry SpO2: 97 - Course Nursing assessment & vital signs reviewed: Yes - CT Exams Abdomen/Pelvis CT Interpretation: Tele-radiologist Report (no a), Normal Appendix, No appendicitis Ordered Tests: Active Orders 24 hr Category Date Time Status ABDOMEN AND PELVIS W/0 CONTRAS [CT] Stat Exams 02/23/19 09:33 Taken AMYLASE Stat Lab 02/23/19 09:04 Completed CBC W DIFF Stat Lab 02/23/19 09:04 Completed CMP Stat Lab 02/23/19 09:04 Completed LIPASE Stat Lab 02/23/19 09:04 Completed Lactic Acid Stat Lab 02/23/19 08:45 Completed UA W/RFX UR CULTURE Stat Lab 02/23/19 10:51 Completed Medication Summary Discontinued Medications Generic Name Dose Route Start Last Admin Trade Name Weslyq PRN Reason Stop Dose Admin Diphenhydramine HCl 12.5 mg 02/23/19 09:17 02/23/19 09:21 Benadryl 50 Mg/Ml IV 02/23/19 09:18 Not Given STAT ONE Diphenhydramine HCl Confirm 02/23/19 09:19 Benadryl 50 Mg/Ml Administered 02/23/19 09:20 Dose 50 mg .ROUTE .STK-MED ONE Diphenhydramine HCl 25 mg 02/23/19 09:20 02/23/19 09:21 Benadryl 50 Mg/Ml IV 02/23/19 09:21 25 mg STAT ONE Administration Fentanyl Citrate 50 mcg 02/23/19 08:45 02/23/19 09:00 Sublimaze 100 Mcg/2 Ml IV 02/23/19 08:46 50 mcg STAT ONE Administration Fentanyl Citrate Confirm 02/23/19 08:54 Sublimaze 100 Mcg/2 Ml Administered 02/23/19 08:55 Dose 100 mcg .ROUTE .STK-MED ONE Hydromorphone HCl 1 mg 02/23/19 10:03 02/23/19 10:07 Hydromorphone 1 Mg/Ml Ampule IV 02/23/19 10:04 1 mg STAT ONE Administration Hydromorphone HCl Confirm 02/23/19 10:04 Hydromorphone 1 Mg/Ml Ampule Administered 02/23/19 10:05 Dose 1 mg .ROUTE .STK-MED ONE Sodium Chloride 1,000 mls @ 999 mls/hr 02/23/19 08:45 02/23/19 10:19 Sodium Chloride 0.9% 1000 Ml IV 02/23/19 09:45 Infused .Q1H1M STA Infusion Sodium Chloride Confirm 02/23/19 08:54 Sodium Chloride 0.9% 1000 Ml Administered 02/23/19 08:55 Dose 1,000 mls @ ud .ROUTE .STK-MED ONE Ketorolac Tromethamine 30 mg 02/23/19 09:58 02/23/19 10:03 Toradol 30 Mg Injection IV 02/23/19 09:59 Not Given STAT ONE Ondansetron HCl 4 mg 02/23/19 08:56 02/23/19 08:59 Zofran 4 Mg/2 Ml Vial IV 02/23/19 08:57 4 mg STAT ONE Administration Ondansetron HCl Confirm 02/23/19 08:58 Zofran 4 Mg/2 Ml Vial Administered 02/23/19 08:59 Dose 4 mg .ROUTE .STK-MED ONE Lab/Rad Data: Laboratory Result Diagrams 02/23/19 09:04 02/23/19 09:04 Laboratory Results 02/23/19 02/23/19 02/23/19 Range/Units 10:51 09:04 09:04 WBC 6.8 (4.0-10.5) K/mm3 RBC 3.76 L (4.1-5.4) M/mm3 Hgb 11.3 L (12.0-16.0) gm/dl Hct 35.9 (35-47) % MCV 95.5 (78-100) fl MCH 30.0 (26-32) pg MCHC 31.5 L (32-36) g/dl RDW 13.8 (11.5-14.0) % Plt Count 283 (150-450) K/mm3 MPV 9.4 (6-9.5) fl Gran % 72.9 H (36.0-66.0) % Eos # (Auto) 0.19 (0-0.5) Absolute Lymphs (auto) 1.18 (1.0-4.6) Absolute Monos (auto) 0.46 (0.0-1.3) Lymphocytes % 17.5 L (24.0-44.0) % Monocytes % 6.8 (0.0-12.0) % Eosinophils % 2.8 (0.00-5.0) % Basophils % 0.0 (0.0-0.4) % Absolute Granulocytes 4.93 (1.4-6.9) Basophils # 0 (0-0.4) Sodium 138 (137-145) mmol/L Potassium 4.0 (3.5-5.1) mmol/L Chloride 107 (98-107) mmol/L Carbon Dioxide 26 (22-30) mmol/L Anion Gap 8.9 (5-15) MEQ/L BUN 16 (7-17) mg/dL Creatinine 0.74 (0.52-1.04) mg/dL Estimated GFR > 60.0 ML/MIN Glucose 107 H (74-106) mg/dL Lactic Acid (0.4-2.0) Calcium 9.2 (8.4-10.2) mg/dL Total Bilirubin 0.20 (0.2-1.3) mg/dL AST 15 (14-36) U/L ALT 18 (0-35) U/L Alkaline Phosphatase 160 H (38-126) U/L Serum Total Protein 7.3 (6.3-8.2) g/dL Albumin 3.6 (3.5-5.0) g/dL Amylase 49 (30-110) U/L Lipase 56 (23-300) U/L Urine Color STRAW (YELLOW) Urine Appearance CLEAR (CLEAR) Urine pH 6.0 (5-6) Ur Specific [place] 1.011 (1.005-1.025) Urine Protein NEGATIVE (Negative) Urine Ketones NEGATIVE (NEGATIVE) Urine Blood NEGATIVE (0-5) [place]/ul Urine Nitrite NEGATIVE (NEGATIVE) Urine Bilirubin NEGATIVE (NEGATIVE) Urine Urobilinogen NEGATIVE (0-1) mg/dL Ur Leukocyte Esterase NEGATIVE (NEGATIVE) Urine WBC (Auto) 0-2 (0-5) /HPF Urine RBC (Auto) NONE (0-2) /HPF U Epithel Cells (Auto) RARE (FEW) /HPF Urine Bacteria (Auto) NONE (NEGATIVE) /HPF Urine Culture Reflexed NO (NO) Urine Glucose NEGATIVE (NEGATIVE) mg/dL 02/23/19 Range/Units 08:45 WBC (4.0-10.5) K/mm3 RBC (4.1-5.4) M/mm3 Hgb (12.0-16.0) gm/dl Hct (35-47) % MCV (78-100) fl MCH (26-32) pg MCHC (32-36) g/dl RDW (11.5-14.0) % Plt Count (150-450) K/mm3 MPV (6-9.5) fl Gran % (36.0-66.0) % Eos # (Auto) (0-0.5) Absolute Lymphs (auto) (1.0-4.6) Absolute Monos (auto) (0.0-1.3) Lymphocytes % (24.0-44.0) % Monocytes % (0.0-12.0) % Eosinophils % (0.00-5.0) % Basophils % (0.0-0.4) % Absolute Granulocytes (1.4-6.9) Basophils # (0-0.4) Sodium (137-145) mmol/L Potassium (3.5-5.1) mmol/L Chloride (98-107) mmol/L Carbon Dioxide (22-30) mmol/L Anion Gap (5-15) MEQ/L BUN (7-17) mg/dL Creatinine (0.52-1.04) mg/dL Estimated GFR ML/MIN Glucose (74-106) mg/dL Lactic Acid 1.3 (0.4-2.0) Calcium (8.4-10.2) mg/dL Total Bilirubin (0.2-1.3) mg/dL AST (14-36) U/L ALT (0-35) U/L Alkaline Phosphatase (38-126) U/L Serum Total Protein (6.3-8.2) g/dL Albumin (3.5-5.0) g/dL Amylase (30-110) U/L Lipase (23-300) U/L Urine Color (YELLOW) Urine Appearance (CLEAR) Urine pH (5-6) Ur Specific [place] (1.005-1.025) Urine Protein (Negative) Urine Ketones (NEGATIVE) Urine Blood (0-5) [place]/ul Urine Nitrite (NEGATIVE) Urine Bilirubin (NEGATIVE) Urine Urobilinogen (0-1) mg/dL Ur Leukocyte Esterase (NEGATIVE) Urine WBC (Auto) (0-5) /HPF Urine RBC (Auto) (0-2) /HPF U Epithel Cells (Auto) (FEW) /HPF Urine Bacteria (Auto) (NEGATIVE) /HPF Urine Culture Reflexed (NO) Urine Glucose (NEGATIVE) mg/dL - Progress Progress: improved Counseled pt/family regarding: lab results, diagnosis, need for follow-up, rad results - Departure Departure Disposition: Home Clinical Impression: Abdominal pain Qualifiers: Abdominal location: right lower quadrant Qualified Code(s): R10.31 - Right lower quadrant pain Constipation Qualifiers: Constipation type: unspecified constipation type Qualified Code(s): K59.00 - Constipation, unspecified Condition: Stable Critical Care Time: Yes Critical Care Time(excluding separately billable procedures): 30-74 minutes Referrals: DOCTOR,NO FAMILY [Primary Care Provider] - Instructions: Acute Abdomen (Belly Pain) Additional Instructions: ABDOMINAL PAIN 1. There are several different causes for abdominal pain, some of which may not be able to be identified on initial examination. 2. The important thing to remember is that bodily functions can change in a short period of time. If you notice any of the following symptoms, return to the emergency department or consult your doctor immediately: A. Worsening pain or no improvement in the next 12 hours. B. Increasing, severe abdominal pain C. Blood in stool D. Black stools E. Persistent vomiting F. Fever or chills or other symptoms
[2019-02-23] MEDS ORDERED: SUBLIMAZE 100 MCG/2 ML ONE (08:54)
[2019-02-23] MEDS ORDERED: Sodium Chloride 0.9% 1000 ML 1,000 ML ONE (08:54)
[2019-02-23] MEDS ORDERED: Zofran 4 MG/2 ML VIAL IV ONE (08:56)
[2019-02-23] MEDS ORDERED: Zofran 4 MG/2 ML VIAL ONE (08:58)
[2019-02-23 09:05] LABS: Basophil (Absolute #) 0 (0-0.4); Eosinophil % 2.8 % (0.00-5.0); Eosinophil (Absolute #) 0.19 (0-0.5); Granulocyte Absolute (ANC) 4.93 (1.4-6.9); Granulocytes % 72.9 % (36.0-66.0); Hematocrit 35.9 % (35-47); Hemoglobin 11.3 gm/dl (12.0-16.0); Lymphocyte (Absolute #) 1.18 (1.0-4.6); Lymphocytes % 17.5 % (24.0-44.0); Mean Cell Volume 95.5 fl (78-100); Mean Corpuscular Hgb Concent. 31.5 g/dl (32-36); Mean Platelet Volume 9.4 fl (6-9.5); Monocyte (Absolute #) 0.46 (0.0-1.3); Monocytes % 6.8 % (0.0-12.0); Platelet Count 283 K/mm3 (150-450); Red Blood Count 3.76 M/mm3 (4.1-5.4); Red Cell Distribution Width 13.8 % (11.5-14.0); White Blood Count 6.8 K/mm3 (4.0-10.5)
[2019-02-23 09:15] LABS: ALBUMIN 3.6 g/dL (3.5-5.0); ALKALINE PHOSPHATASE 160 U/L (38-126); AMYLASE 49 U/L (30-110); ANION GAP 8.9 MEQ/L (5-15); BLOOD UREA NITROGEN 16 mg/dL (7-17); CHLORIDE 107 mmol/L (98-107); Calcium 9.2 mg/dL (8.4-10.2); Carbon Dioxide 26 mmol/L (22-30); Creatinine 1 0.74 mg/dL (0.52-1.04); Glucose 107 mg/dL (74-106); LIPASE 56 U/L (23-300); SGOT/AST 15 U/L (14-36); SGPT/ALT 18 U/L (0-35); SODIUM 138 mmol/L (137-145); Total Protein 7.3 g/dL (6.3-8.2)
[2019-02-23] MEDS ORDERED: BENADRYL 50 MG/ML IV ONE ×2 (09:17→09:20)
[2019-02-23] MEDS ORDERED: BENADRYL 50 MG/ML ONE (09:19)
[2019-02-23] MEDS ORDERED: TORAdol 30 mg Injection IV ONE (09:58)
[2019-02-23] MEDS ORDERED: Hydromorphone 1 mg/ml Ampule IV ONE (10:03)
[2019-02-23] MEDS ORDERED: Hydromorphone 1 mg/ml Ampule ONE (10:04)
[2019-02-23 10:12] VITALS: PULSE 62
[2019-02-23 10:56] VITALS: BP 103/63
[2019-02-23 11:10] LABS: Appearance CLEAR (CLEAR); Bilirubin NEGATIVE (NEGATIVE); Blood NEGATIVE Ery/ul (0-5); Epithelial Cells RARE /HPF (FEW); Glucose NEGATIVE (NEGATIVE); Ketones NEGATIVE (NEGATIVE); Leukocyte Esterase NEGATIVE (NEGATIVE); Nitrite NEGATIVE (NEGATIVE); Protein,Urine Dip NEGATIVE (Negative); Specific Gravity 1.011 (1.005-1.025); Urobilinogen NEGATIVE mg/dL (0-1); WBC 0-2 /HPF (0-5)
[2019-02-23 11:17] VITALS: O2SAT 97
--- NOTE | 2019-02-23 20:00 | XRAY ---
Indication: Right lower quadrant pain. Nausea, vomiting, and diarrhea. Multiple contiguous axial images obtained through the abdomen and pelvis without contrast as ordered. Comparison: August 03, 2018. Lung bases again demonstrates minimal bibasilar dependent atelectasis. No infiltrate or effusion. Heart is not enlarged. Noncontrasted stomach and bowel loops appear nonobstructed. Normal appendix. No free fluid/air. Again mild diffuse scattered colonic fecal debris throughout, hysterectomy, and cholecystectomy. Remaining liver, pancreas, spleen, adrenal glands, kidneys, ureters, bladder, and aorta appear unremarkable for noncontrast exam. Osseous structures intact. Impression: 1. Again fecal stasis without obstruction. 2. Remaining CT abdomen/pelvis without contrast exam is negative. Comment: Preliminary interpretation was made by [facility]. No discrepancy. CTDI 35.17
== END 2019-02-23 11:28 | disposition home or self-care (01) ==
LOC: ED 08:29
DX: R10.31 Right lower quadrant pain (principal); K59.00 Constipation, unspecified; I10 Essential (primary) hypertension; Z79.899 Other long term (current) drug therapy; M06.9 Rheumatoid arthritis, unspecified; K50.90 Crohn's disease, unspecified, without complications; Z85.028 Personal history of other malignant neoplasm of stomach; F41.9 Anxiety disorder, unspecified; F43.10 Post-traumatic stress disorder, unspecified
CPT/HCPCS: 36000; 36415; 74176; 80053; 81001; 82150; 83605; 83690; 85025; 96360; 96374; 96375; 99284; J1170; J1200; J1642; J2405; J3010